=== PATIENT | female | born 1950 | race Two or more races ===

== ENCOUNTER 2020-04-28 11:58 | Outpatient (CLI) | payer MEDICARE, MEDICAID ==
--- NOTE | 2020-04-28 15:15 | Consultation ---
DATE OF CONSULTATION: 04/28/2020 CHIEF COMPLAINT: Referral for colonoscopy, last colonoscopy over 5 years ago. PAST MEDICAL HISTORY: 1. History of chronic tremor. 2. Hypothyroidism. 3. Constipation. PAST SURGICAL HISTORY: History of left shoulder surgery in January of 2020. MEDICATIONS: Please see medication reconciliation list. FAMILY HISTORY: Noncontributory. SOCIAL HISTORY: The patient denies any tobacco, alcohol, or drug abuse. ALLERGIES: No known drug allergies. REVIEW OF SYSTEMS: A 10-point review of systems was performed and pertinent positives in HPI. PHYSICAL EXAMINATION: GENERAL: The patient is a well developed female, in no acute distress. HEENT: Normocephalic and atraumatic. Sclerae anicteric. NECK: Supple. No evidence of obvious lymphadenopathy. CARDIOVASCULAR: Regular rate and rhythm. Plus S1 and S2. LUNGS: Clear to auscultation bilaterally. ABDOMEN: Positive bowel sounds. Soft and nontender. No rebound. No guarding. No peritoneal sign. EXTREMITIES: No cyanosis, no clubbing, no edema. ASSESSMENT AND PLAN: This is a 70-year-old female with history of chronic constipation, needs screening colonoscopy evaluation. Currently, the patient taking some [id number] herbal medication for her constipation and is working so she does not want to have anything change at this time. Our plan will be to schedule for colonoscopy. The patient was given instruction for prep and procedure and we will schedule her when she is ready for her it. Damián Hoff M.D. DR: Maximiliano JOB#: [id number] CC:
== END 2020-04-28 13:58 | disposition home or self-care (01) ==
LOC: PAN 11:58
DX: K59.00 Constipation, unspecified (principal); E03.9 Hypothyroidism, unspecified
CPT/HCPCS: 99212